=== PATIENT | male | born 1990 | race Caucasian/White ===

== ENCOUNTER 2018-07-29 13:56 | Emergency (ER) | payer SELFPAY ==
[~2018-07-29] VITALS: Ht 180.3 cm; Wt 182.0 kg
[2018-07-29 14:37] LABS: HEMATOCRIT 44.2 % (39.0-50.0); HEMOGLOBIN 14.6 g/dl (14.0-18.0); IMMATURE GRANULOCYTES 0.8 % (0.0-5.0); MEAN CELL VOLUME 86.7 fL CALC (80.0-100.0); MEAN CORPUSCULAR HGB 28.6 pG CALC (26.0-32.0); NEUT# 5.81 thou/uL (1.82-7.42); RED BLOOD COUNT 5.1 mill/uL (4.70-6.10); RED CELL DISTRI WIDTH 13.8 % (11.5-15.5)
[2018-07-29 14:53] LABS: ANION GAP 15 (6-22 (CALC)); BUN 13 mg/dL (9-20); BUN/CREATININE RATIO 18 (12-20 (CALC)); CARBON DIOXIDE 25 mmol/l (22-30); CHLORIDE 106 mmol/l (95-108); CREATININE 0.7 mg/dL (0.7-1.3); GFR > 60 ML/MIN (>=60 (CALC)); GFR FOR AFR.AMER. > 60 ML/MIN (>=60 (CALC)); POTASSIUM 4.2 mmol/l (3.5-5.1); SODIUM 142 mmol/l (137-146)
[2018-07-29 14:54] LABS: ETHYL ALCOHOL 175 mg/dl (0-30)
[2018-07-29 15:35] LABS: BARBITURATES NEGATIVE (NEGATIVE); COCAINE NEGATIVE (NEGATIVE); METHADONE NEGATIVE (NEGATIVE); OXCYCODONE NEGATIVE (NEGATIVE); TETRAHYDROCANNABIONOL NEGATIVE (NEGATIVE); TRICYLIC ANTIDEPRESSANTS NEGATIVE (NEGATIVE)
[2018-07-29 16:25] VITALS: BP 149/84
[2018-07-29] MEDS ORDERED: WELLBUTRIN SR150 MG PO (17:11)
[2018-07-29] MEDS ORDERED: SERTRALINE50 MG PO (17:12)
[2018-07-29] MEDS ORDERED: TOPAMAX50 MG PO (17:13)
== END 2018-07-29 18:50 | disposition short-term general hospital (02) | DRG 918 ==
LOC: ED 13:56 → ED-I 15:56 → ED 18:50
PROVIDERS: Family Medicine
DX: T51.0X2A Toxic effect of ethanol, intentional self-harm, initial encounter (principal); Y92.009 Unspecified place in unspecified non-institutional (private) residence as the place of occurrence of the external cause